=== PATIENT | male | born 1945 | race Caucasian/White ===

== ENCOUNTER → 2019-01-19 | Outpatient (CLI) | payer OTHER ==
[~2019-01-19] VITALS: Ht 185.4 cm; Wt 114.3 kg
[~2019-01-19] MED LIST: FINASTERIDE5 MG PO; FLOMAX0.4 MG PO; GLUCOPHAGE XR750 MG PO; I-CAPS AREDS S1 EACH PO; LISINOPRIL20 MG PO; SERTRALINE HCL100 MG PO; SIMVASTATIN40 MG PO; TOPROL XL25 MG PO
[2019-01-19 08:19] VITALS: BP 131/76
--- NOTE | 2019-01-19 09:24 | EKG ---
[place] [address] [facility] [place] [address] ELECTROCARDIOGRAM REPORT Name: DOROTHY KEEN Room #: REG CLPriti Ordonez#: [id number] ������������������ Admission: 01/19/19 ������������������ Attend Phys: Daljit Hodgson Discharge: ������������������ Date of : 49 Report #: [id number] ����������������������������������������������������������������� [id number] THIS REPORT FOR: //name// [facility] Test Date: 2019-01-19 Test Time: 08:21:03 Pat Name: DOROTHY KEEN Department: Room: Gender: Tanker Truck Driver: Korin HARRY : 1945 Requested By: Daljit Hodgson Order Number: [id number] MD: Paco Gallardo Measurements Intervals [place] Rate: 62 P: 23 KS: 186 QRS: 41 QRSD: 106 T: 42 QT: 431 QTc: 438 Interpretive Statements Sinus rhythm RSR' in V1 or V2, right VCD No previous ECG available for comparison Electronically Signed On 01-19-2019 9:23:49 CDT by Paco Gallardo [email or web address] ��������������������������������������������� <ELECTRONICALLY SIGNED> ���������������������������������������� By: Paco Gallardo MD, [facility] ��������������������������������������������� 01/19/19922 0 0 Paco Gallardo MD, FACC /EPI
--- NOTE | 2019-01-24 12:17 | CATHLAB ---
[facility] [address] [place] [address] INVASIVE PROCEDURE REPORT Name: DOROTHY KEEN Room #: REG Mery#: [id number] ������������� Admission: 01/19/19 ������������� Attend Phys: Daljit Block Discharge: ��� ������������� ��� Date of : 49 Date of Service: 01/24/19 1216 �� Report #: [id number] �������� ��������������������������������������������[id number] THIS REPORT FOR: //name// APPROVED REPORT Study performed: 01/19/2019 10:13:52 Patient Details The patient is a 73 year-old male Event Personnel Daljit Hodgson Manager Strategy & Account, Dc Hernandez RN, Naif Wray RTR Scrub, Walter Gorman Monitor Procedures Performed Left Heart Cath w/or w/o Coronaries [id number] [facility], supervision of conscious sedation Indication Positive stress test, Chest pain Procedure Narrative The Right Groin^ was infiltrated with 1% Lidocaine subcutaneous anesthesia. A PINNACLE 6FR Sheath #[id number] sheath was inserted into the RFA^. Coronary angiography was performed using coronary diagnostic catheters. The right coronary system was accessed and visualized with a JR4 catheter. The left coronary system was accessed and visualized with a JL4 catheter. The left ventricle was accessed and visualized with a Pigtail catheter. The patient tolerated the procedure well and there were no complications associated with the procedure. There was no hematoma. Intraoperative Conscious Sedation Sedation start time: 1020 Case end Time: 1035 Versed 4 mg Fluoro Time: 1.33 minutes Dose: DAP 4616.00 cGycm2 641 mGy Contrast Type and Amount: Omnipaque 70 ml Coronary Angiography The patient's coronary anatomy is right dominant. Diagnostic Cath [facility] [address] [place] [address] INVASIVE PROCEDURE REPORT Name: DOROTHY KEEN Room #: REG CL [facility]#: [id number] ������������� Admission: 01/19/19 ������������� Attend Phys: Daljit Block Discharge: ��� ������������� ��� Date of : 49 Date of Service: 01/24/19 1216 �� Report #: [id number] �������� ��������������������������������������������[id number] Left Main Normal origin and moderate to large caliber bifurcates left anterior descending left circumflex. There is a distal eccentric 40% lesion identified which does not appear to be flow-limiting LAD Moderate caliber type II vessel which has been moderate calcification in its proximal and proximal mid portions. This proximal portion appears to have irregularities of under 50% throughout its entire course. The vessel then continues on after giving rise to diagonal and septal in the anterior interventricular sulcus. Then tapers towards the apex without significant irregularities or lesions noted Diagonal 1 Moderate caliber vessel coursing on the anterolateral wall with luminal irregularities but no high-grade lesions are noted. The vessels are diffusely diseased. Circumflex Moderate caliber previously stented mid to distal circumflex courses in the AV groove giving rise to first marginal branch. Which she is a trifurcating vessel which is a previously stented vessel. In one of the branches of this vessel the stent is with proximal 23rd percent restenosis. Proximal to that doesn't 90. Percent angulation into the main branch with her appears to be of the apnea of his multiple dilatation. There is also a second branch coming out that has a 70% lesion and appears to be less than 1.5 mm in diameter. OM1 As described above Right Coronary Large-caliber vessel normal origin has moderate diffuse irregularities and in-stent restenosis of less than 50%. These did not appear to be flow-limiting. The vessel continues to the crux of the heart where it gives rise to a moderate caliber long posterior descending artery free of high-grade disease R PDA Moderate caliber vessel with irregularities and no high-grade lesions Left Ventriculography Left Ventriculography was not performed. Hemodynamics The aortic pressure is 134/61 mmHg with a mean of mmHg. The left ventricular pressure is 123/10 mmHg with a mean of mmHg. The left ventricular end diastolic pressure is 27 mmHg. Conclusion 1. Coronary artery disease multivessel moderate involving the ostial LAD, distal left main, branches of the first marginal branch of the left circumflex and proximal right coronary artery. 2. Abnormal he whether has elevated liver ventricular and a slight pressures [facility] [address] [place] [address] INVASIVE PROCEDURE REPORT Name: OSMANIDOROTHY ANGEL Room #: REG CL Hui#: [id number] ������������� Admission: 01/19/19 ������������� Attend Phys: Daljit Block Discharge: ��� ������������� ��� Date of : 49 Date of Service: 01/24/19 1216 �� Report #: [id number] �������� ��������������������������������������������[id number] Recommendations Aggressive Medical Therapy The patient's anatomy is not severe at present and up to proceed with multivessel coronary disease especially in the absence of a left ventricular dysfunction. It is prominent and diffuse enough that long-term benefits may be questionable both percutaneous and surgical at this time. In view of this optimize medical regimen trial be performed. If patient improves clinically so that we can control symptoms then optimize a shunt the medicine would be appropriate. If not then free assessment of revascularization strategies will be performed ��������������������������������������������� <ELECTRONICALLY SIGNED> ���������������������������������������� By: Daljit Hodgson MD ��������������������������������������������� 01/24/19 1216 15 15 Daljit Hodgson MD /INF
== END | disposition home or self-care (01) ==
LOC: CATH 07:51
DX: I25.10 Atherosclerotic heart disease of native coronary artery without angina pectoris (principal); I10 Essential (primary) hypertension; I25.2 Old myocardial infarction; E78.5 Hyperlipidemia, unspecified; E11.9 Type 2 diabetes mellitus without complications; F41.9 Anxiety disorder, unspecified; Z98.890 Other specified postprocedural states; Z79.899 Other long term (current) drug therapy; Z87.891 Personal history of nicotine dependence